=== PATIENT | female | born 1955 | race Caucasian/White ===

== ENCOUNTER → 2024-07-06 | Outpatient (CLI) | payer MEDICARE ==
--- NOTE | 2024-07-06 11:20 | CT ---
EXAMINATION TYPE: CT Cystogram DATE OF EXAM: 07/06/2024 COMPARISON: None. HISTORY: vaginal discharge, air in bladder and vagina, recent sigmoidectomy CT DLP: 410.9 mGycm Automated exposure control for dose reduction was used. CONTRAST: CT pelvis before and after injection of contrast into the urinary bladder through [place] catheter util izing Isovue 300. FINDINGS: There is successful filling of contrast in the bladder with air contrast level. No contrast extravasa tion is clearly seen to identify suspected fistula to the vagina. Surgical changes anterior left pelvis with clips extending into the groin region are present. Uterus is surgically absent. There are sigmoid colonic diverticula with surgical sutures noted. No abnormal bowel dilatation. No free fluid in the pelvis. Tiny fat-containing right inguinal hernia. Osseous str uctures are intact. IMPRESSION: Fistula communication to the vagina is not identified in this study. Consider surgical ex ploration or possible MRI evaluation if symptoms persist. [facility], , 07/06/2024 11:17 AM
== END | disposition home or self-care (01) ==
LOC: RADCTMAIN 07:47
PROVIDERS: ATTEND Psychiatry & Neurology Neurology with Special Qualifications in Child Neurology
DX: R39.89 Other symptoms and signs involving the genitourinary system (principal); K40.90 Unilateral inguinal hernia, without obstruction or gangrene, not specified as recurrent
CPT/HCPCS: 72192